=== PATIENT | female | born 1965 | race Caucasian/White ===

== ENCOUNTER 2021-10-18 14:08 | Outpatient (CLI) | payer OTHER, SELFPAY ==
--- NOTE | 2021-10-18 | XR_ITS ---
WS: [id number] Exam: XR chest 2V* [id number] Date/Time of Exam: 10/18/2021 2:18 PM Reason For Exam: COUGH No priors. The heart is enlarged. There is pulmonary vascular congestion and left pleural effusion. Findings are suspicious for congestive heart failure. There may also be some pleural effusion in the posterior ri ght pulmonary gutter. Normal bony structures. The mediastinum is not widened. XR/XR chest 2V* [id number] IMPRESSION: 1. Cardiac enlargement with pulmonary vascular congestion suggesting some degre e of CHF. 2. Left basal pleural effusion. There may also be some pleural effusion in the right posterior pulmonary gutter.
== END 2021-10-18 14:09 | disposition home or self-care (01) ==
PROVIDERS: PCP Physician Assistant; Visit Provider Physician Assistant
DX: R05.9 Cough, unspecified (principal); J90 Pleural effusion, not elsewhere classified; I51.7 Cardiomegaly
CPT/HCPCS: 71046